=== PATIENT | female | born 1945 | race Caucasian/White ===

== ENCOUNTER 2021-03-16 16:18 | Inpatient (IN) ==
[2021-03-16] MEDS ORDERED: Ondansetron ODT 4 MG TAB.RAPDIS SL PRN (18:44)
[2021-03-16] MEDS: Apixaban 5 MG TABLET PO SCH (23:42)
[2021-03-17] MEDS ORDERED: Dextrose Gel 15 GM/37.5 ML TUBE PO PRN ×2 (03:32)
[2021-03-17] MEDS ORDERED: *HR* Dextrose 50 % in Water (Syg) 50 ML SYRINGE IVP PRN (03:32)
[2021-03-17] MEDS ORDERED: D5% in Water 1,000 ML IVC PRN (03:32)
[2021-03-17 06:29] LABS: Basophils % 0.3 %; Eosinophils % 0.2 %; Hematocrit 40.7 % (35.3-44.9); Immature Granulocytes % 1.2 % (0-4); Lymphocytes # 2.3 K/mcL (0.6-4.6); Lymphocytes % 17.6 %; Mean Corpuscular HGB Conc 31.9 g/dL (31.6-35.5); Mean Corpuscular Hemoglobin 27.4 pg (28.0-33.3); Mean Corpuscular Volume 85.9 fL (83.0-100.0); Mean Platelet Volume 9.8 fL (9.4-12.4); Monocytes # 0.9 K/mcL (0.0-1.3); Monocytes % 7.1 %; Neutrophils # 9.5 K/mcL (1.6-8.9); Platelet Count 360 K/mcL (140-400); Red Blood Count 4.74 M/mcL (3.82-4.97); Red Cell Distribution Width 14.5 % (11.5-14.5); Segmented Neutrophils % 73.6 %; White Blood Count 12.9 K/mcL (4.3-11.1)
[2021-03-17 08:31] LABS: BUN/Creatinine Ratio 32 (6-26); Blood Urea Nitrogen 28 mg/dL (8-23); Calcium 9.4 mg/dL (8.6-10.3); Carbon Dioxide 32 mEq/L (23-29); Chloride 97 mEq/L (98-107); Glucose 123 mg/dL (70-105); Osmolality,Calculated 287 (280-300); Potassium 4.3 mEq/L (3.5-5.1); Sodium 135 mEq/L (136-145); eGFR For African Americans > 60 (> 60); eGFR For Non-African Americans > 60 (> 60)
[2021-03-17] MEDS: Insulin LISPRO 300 UNITS/3 ML VIAL SUBQ SCH ×4 (08:34→19:57)
[2021-03-17] MEDS: Vitamin B Complex/Vit C/Vit E 1 EACH TABLET PO SCH (09:23)
[2021-03-17] MEDS: (Fish Oil 1,000 Mg Softgel) PO SCH (09:24)
[2021-03-17] MEDS: FLUoxetine 20 MG CAPSULE PO SCH (09:24)
[2021-03-17] MEDS: Apixaban 5 MG TABLET PO SCH ×2 (09:24→19:57)
[2021-03-18] MEDS: FLUoxetine 20 MG CAPSULE PO SCH (08:30)
[2021-03-18] MEDS: Insulin LISPRO 300 UNITS/3 ML VIAL SUBQ SCH ×4 (08:31→20:49)
[2021-03-18] MEDS: Apixaban 5 MG TABLET PO SCH ×2 (08:31→20:48)
[2021-03-18] MEDS: Vitamin B Complex/Vit C/Vit E 1 EACH TABLET PO SCH (08:31)
[2021-03-18] MEDS: (Fish Oil 1,000 Mg Softgel) PO SCH (08:31)
[2021-03-18] MEDS: polyethylene glycoL 3350 17 GM POWD.PACK PO SCH (08:31)
[2021-03-19] MEDS: Apixaban 5 MG TABLET PO SCH ×2 (08:13→21:00)
[2021-03-19] MEDS: polyethylene glycoL 3350 17 GM POWD.PACK PO SCH (08:13)
[2021-03-19] MEDS: Insulin LISPRO 300 UNITS/3 ML VIAL SUBQ SCH ×4 (08:13→22:54)
[2021-03-19] MEDS: (Fish Oil 1,000 Mg Softgel) PO SCH (08:13)
[2021-03-19] MEDS: Vitamin B Complex/Vit C/Vit E 1 EACH TABLET PO SCH (08:13)
[2021-03-19] MEDS: FLUoxetine 20 MG CAPSULE PO SCH (08:13)
[2021-03-20] MEDS: Budesonide/Formoterol 80/4.5 1 PUFF INH IH SCH ×4 (07:55→13:38)
[2021-03-20] MEDS: Apixaban 5 MG TABLET PO SCH ×2 (08:28→21:19)
[2021-03-20] MEDS: FLUoxetine 20 MG CAPSULE PO SCH (08:28)
[2021-03-20] MEDS: Insulin LISPRO 300 UNITS/3 ML VIAL SUBQ SCH ×4 (08:28→21:20)
[2021-03-20] MEDS: (Fish Oil 1,000 Mg Softgel) PO SCH (08:28)
[2021-03-20] MEDS: polyethylene glycoL 3350 17 GM POWD.PACK PO SCH (08:28)
[2021-03-20] MEDS: Vitamin B Complex/Vit C/Vit E 1 EACH TABLET PO SCH (08:28)
[2021-03-21] MEDS: FLUoxetine 20 MG CAPSULE PO SCH (10:02)
[2021-03-21] MEDS: Vitamin B Complex/Vit C/Vit E 1 EACH TABLET PO SCH (10:02)
[2021-03-21] MEDS: polyethylene glycoL 3350 17 GM POWD.PACK PO SCH (10:03)
[2021-03-21] MEDS: Apixaban 5 MG TABLET PO SCH ×2 (10:03→21:34)
[2021-03-21] MEDS: Insulin LISPRO 300 UNITS/3 ML VIAL SUBQ SCH ×3 (10:03→21:35)
[2021-03-21] MEDS: (Fish Oil 1,000 Mg Softgel) PO SCH (10:03)
[2021-03-21] MEDS: Budesonide/Formoterol 80/4.5 1 PUFF INH IH SCH (23:43)
[2021-03-22] MEDS: Budesonide/Formoterol 80/4.5 1 PUFF INH IH SCH ×4 (02:17→21:55)
[2021-03-22] MEDS: Insulin LISPRO 300 UNITS/3 ML VIAL SUBQ SCH ×4 (08:18→22:38)
[2021-03-22] MEDS: Apixaban 5 MG TABLET PO SCH ×2 (08:18→20:05)
[2021-03-22] MEDS: (Fish Oil 1,000 Mg Softgel) PO SCH (08:18)
[2021-03-22] MEDS: Vitamin B Complex/Vit C/Vit E 1 EACH TABLET PO SCH (08:18)
[2021-03-22] MEDS: FLUoxetine 20 MG CAPSULE PO SCH (08:18)
[2021-03-22] MEDS: polyethylene glycoL 3350 17 GM POWD.PACK PO SCH (08:18)
[2021-03-22 09:53] LABS: Basophils % 0.5 %; Eosinophils # 0.3 K/mcL (0.0-0.6); Eosinophils % 3.4 %; Hematocrit 37.4 % (35.3-44.9); Hemoglobin 11.8 g/dL (11.5-15.4); Lymphocytes # 1.3 K/mcL (0.6-4.6); Lymphocytes % 17.3 %; Mean Corpuscular HGB Conc 31.6 g/dL (31.6-35.5); Mean Corpuscular Hemoglobin 27.7 pg (28.0-33.3); Mean Corpuscular Volume 87.8 fL (83.0-100.0); Mean Platelet Volume 9.7 fL (9.4-12.4); Monocytes # 0.6 K/mcL (0.0-1.3); Monocytes % 7.8 %; Neutrophils # 5.4 K/mcL (1.6-8.9); Platelet Count 237 K/mcL (140-400); Red Blood Count 4.26 M/mcL (3.82-4.97); Red Cell Distribution Width 15.1 % (11.5-14.5); White Blood Count 7.7 K/mcL (4.3-11.1)
[2021-03-22 10:09] LABS: BUN/Creatinine Ratio 16 (6-26); Blood Urea Nitrogen 14 mg/dL (8-23); Calcium 8.7 mg/dL (8.6-10.3); Carbon Dioxide 30 mEq/L (23-29); Chloride 97 mEq/L (98-107); Glucose 141 mg/dL (70-105); Magnesium 1.8 mg/dL (1.6-2.6); Osmolality,Calculated 283 (280-300); Potassium 3.8 mEq/L (3.5-5.1); Sodium 135 mEq/L (136-145); eGFR For African Americans > 60 (> 60); eGFR For Non-African Americans > 60 (> 60)
[2021-03-22] MEDS ORDERED: Sennosides/Docusate Sodium TABLET PO PRN (12:28)
[2021-03-22] MEDS: Nystatin SUSP 5 ML UD.LIQ BC SCH ×2 (16:42→20:05)
[2021-03-23] MEDS: Apixaban 5 MG TABLET PO SCH ×2 (09:06→21:04)
[2021-03-23] MEDS: Vitamin B Complex/Vit C/Vit E 1 EACH TABLET PO SCH (09:06)
[2021-03-23] MEDS: FLUoxetine 20 MG CAPSULE PO SCH (09:06)
[2021-03-23] MEDS: (Fish Oil 1,000 Mg Softgel) PO SCH (09:07)
[2021-03-23] MEDS: Nystatin SUSP 5 ML UD.LIQ BC SCH ×4 (09:15→21:04)
[2021-03-23] MEDS: Insulin LISPRO 300 UNITS/3 ML VIAL SUBQ SCH ×4 (09:16→21:04)
[2021-03-23] MEDS: Budesonide/Formoterol 80/4.5 1 PUFF INH IH SCH ×2 (09:22→20:45)
[2021-03-23] MEDS: Benzonatate 100 MG CAPSULE PO PRN (21:04)
[2021-03-24] MEDS: Insulin LISPRO 300 UNITS/3 ML VIAL SUBQ SCH ×4 (07:55→20:45)
[2021-03-24] MEDS: FLUoxetine 20 MG CAPSULE PO SCH (08:02)
[2021-03-24] MEDS: Vitamin B Complex/Vit C/Vit E 1 EACH TABLET PO SCH (08:02)
[2021-03-24] MEDS: Nystatin SUSP 5 ML UD.LIQ BC SCH ×4 (08:02→20:30)
[2021-03-24] MEDS: Apixaban 5 MG TABLET PO SCH ×2 (08:03→20:31)
[2021-03-24] MEDS: (Fish Oil 1,000 Mg Softgel) PO SCH (08:03)
[2021-03-24] MEDS: Budesonide/Formoterol 80/4.5 1 PUFF INH IH SCH ×2 (09:48→22:46)
[2021-03-24] MEDS: Benzonatate 100 MG CAPSULE PO PRN (20:32)
[2021-03-25 05:39] LABS: ABG Base Excess 5 mEq/L (-2 to 3); ABG HCO3 30 mEq/L (21-27); ABG Oxygen Saturation 93 % (95-98); ABG PCO2 49 mmHg (35-45); ABG PH 7.41 pH Units (7.32-7.45); ABG PO2 68 mmHg (85-104); ABG TCO2 32 mEq/L (20-26)
[2021-03-25 07:37] LABS: Basophils # 0.1 K/mcL (0.0-0.2); Basophils % 0.5 %; Eosinophils # 0.4 K/mcL (0.0-0.6); Eosinophils % 3.7 %; Hematocrit 32.5 % (35.3-44.9); Hemoglobin 10.1 g/dL (11.5-15.4); Immature Granulocytes % 0.4 % (0-4); Lymphocytes % 21.2 %; Mean Corpuscular HGB Conc 31.1 g/dL (31.6-35.5); Mean Corpuscular Hemoglobin 26.7 pg (28.0-33.3); Mean Platelet Volume 9.2 fL (9.4-12.4); Monocytes # 0.9 K/mcL (0.0-1.3); Monocytes % 9.7 %; Neutrophils # 6.1 K/mcL (1.6-8.9); Platelet Count 203 K/mcL (140-400); Red Blood Count 3.78 M/mcL (3.82-4.97); Red Cell Distribution Width 15.6 % (11.5-14.5); Segmented Neutrophils % 64.5 %; White Blood Count 9.4 K/mcL (4.3-11.1)
[2021-03-25] MEDS ORDERED: Ipratropium/Albuterol Neb 3 ML IH SCH (08:00)
[2021-03-25 08:29] LABS: BUN/Creatinine Ratio 13 (6-26); Blood Urea Nitrogen 10 mg/dL (8-23); Calcium 8.7 mg/dL (8.6-10.3); Carbon Dioxide 32 mEq/L (23-29); Chloride 98 mEq/L (98-107); Glucose 109 mg/dL (70-105); Magnesium 1.9 mg/dL (1.6-2.6); Osmolality,Calculated 282 (280-300); Phosphorous 3.8 mg/dL (2.7-4.5); Potassium 4.6 mEq/L (3.5-5.1); Sodium 136 mEq/L (136-145); eGFR For African Americans > 60 (> 60); eGFR For Non-African Americans > 60 (> 60)
[2021-03-25] MEDS: Budesonide/Formoterol 80/4.5 1 PUFF INH IH SCH ×2 (08:46→21:05)
[2021-03-25] MEDS ORDERED: Ipratropium/Albuterol Neb 3 ML IH PRN (08:59)
[2021-03-25] MEDS ORDERED: Chlorhexidine Rinse 15 ML MOUTHWASH MM SCH (09:00)
[2021-03-25] MEDS: Insulin LISPRO 300 UNITS/3 ML VIAL SUBQ SCH ×4 (09:17→20:15)
[2021-03-25] MEDS: (Fish Oil 1,000 Mg Softgel) PO SCH (09:17)
[2021-03-25] MEDS: Nystatin SUSP 5 ML UD.LIQ BC SCH ×4 (09:18→20:52)
[2021-03-25] MEDS: Apixaban 5 MG TABLET PO SCH ×2 (09:20→20:52)
[2021-03-25] MEDS: Vitamin B Complex/Vit C/Vit E 1 EACH TABLET PO SCH (09:21)
[2021-03-25] MEDS: FLUoxetine 20 MG CAPSULE PO SCH (09:21)
[2021-03-25] MEDS ORDERED: *HR* LORazepam 1 MG TABLET PO PRN (11:33)
[2021-03-25] MEDS: Benzonatate 100 MG CAPSULE PO PRN (15:17)
[2021-03-25] MEDS: predniSONE 20 MG TABLET PO SCH (15:24)
[2021-03-25 20:53] VITALS: RESP 28; TEMP 96.5
[2021-03-26 02:39] LABS: ABG Base Excess 4 mEq/L (-2 to 3); ABG HCO3 31 mEq/L (21-27); ABG Oxygen Saturation 92 % (95-98); ABG PCO2 54 mmHg (35-45); ABG PH 7.36 pH Units (7.32-7.45); ABG PO2 69 mmHg (85-104); ABG TCO2 33 mEq/L (20-26)
[2021-03-26] MEDS: Benzonatate 100 MG CAPSULE PO PRN (05:25)
[2021-03-26 07:33] VITALS: BP 132/76; PULSE 75
[2021-03-26 07:47] LABS: Bilirubin,Urine Negative (Negative); Blood,Urine Negative (Negative); Clarity,Urine Clear (Clear); Color,Urine Yellow (Yellow); Glucose,Urine (UA) Normal (Normal); Ketones,Urine Trace mg/dL (Negative); Leukocyte Esterase,Urine Trace (Negative); Nitrite,Urine Negative (Negative); Protein,Urine Negative (Neg-Trace); Specific Gravity,Urine 1.025 (1.010-1.025); Urobilinogen,Urine Normal (Normal)
[2021-03-26 08:07] LABS: Bacteria,Urine Many per hpf (None-Few); Calcium Oxalate Crystals,Urine Present per hpf
[2021-03-26] MEDS ORDERED: Isovue-370 500 ML BOTTLE IVP ONE (08:31)
[2021-03-26] MEDS: FLUoxetine 20 MG CAPSULE PO SCH (08:45)
[2021-03-26] MEDS: Nystatin SUSP 5 ML UD.LIQ BC SCH (08:45)
[2021-03-26] MEDS: Insulin LISPRO 300 UNITS/3 ML VIAL SUBQ SCH (08:45)
[2021-03-26] MEDS: Vitamin B Complex/Vit C/Vit E 1 EACH TABLET PO SCH (08:46)
[2021-03-26] MEDS: (Fish Oil 1,000 Mg Softgel) PO SCH (08:46)
[2021-03-26] MEDS: Apixaban 5 MG TABLET PO SCH (08:46)
[2021-03-26] MEDS: predniSONE 20 MG TABLET PO SCH (08:46)
[2021-03-26 10:29] VITALS: O2SAT 99
[2021-03-26] MEDS: Budesonide/Formoterol 80/4.5 1 PUFF INH IH SCH (11:29)
== END 2021-03-26 11:31 | disposition short-term general hospital (02) | DRG 177 ==
LOC: INPPIK 23:06
PROVIDERS: ADMIT Family Medicine; ATTEND Family Medicine